=== PATIENT | male | born 1970 | race Caucasian/White ===

== ENCOUNTER 2017-09-19 02:11 | Emergency (ER) | payer SELFPAY ==
[2017-09-19] MEDS ORDERED: Sodium Chloride 0.9% 1,000 ML IV ONE (02:28)
[2017-09-19 02:42] LABS: % BASOPHILS 0.8 % (0.0-2.0); % LYMPHOCYTES 25.7 % (20.0-50.0); % MONOCYTES 5.1 % (2.0-10.0); % NEUTROPHILS 67.4 % (40.0-80.0); BASOPHILE ABSOLUTE 0.1 Th/cumm (0-0.2); EOSINOPHILE ABSOLUTE 0.1 Th/cmm (0.1-0.4); HEMATOCRIT 52.2 % (41.0-60); HEMOGLOBIN 17.3 gm/dL (12-16); LYMPHOCYTE ABSOLUTE 2.6 Th/cmm (1.5-3.0); MEAN CELL VOLUME 87.9 fl (80-99); MEAN CORPUSCULAR HEMOGLOBIN 29.2 pg (26.0-30.0); MEAN CORPUSCULAR HGB CONC 33.2 pg (28.0-36.0); MEAN PLATELET VOLUME 8.1 fl; MONOCYTE ABSOLUTE 0.5 Th/cmm (0.3-1.0); PLATELET COUNT 188 Th/cmm (150-400); RED BLOOD COUNT 5.94 Mil/cmm (4.30-5.70); RED CELL DISTRIBUTION WIDTH 12.4 % (11.5-20.0); WHITE BLOOD COUNT 10.3 Th/cmm (4.8-10.8)
[2017-09-19 02:56] LABS: ALB/GLOB RATIO 1.7 (1.0-1.8); ALBUMIN 4.3 gm/dL (4.2-5.5); ALKALINE PHOSPHATASE 122 U/L (34-104); ANION GAP 9.2 (7.0-16.0); BILIRUBIN,TOTAL 0.3 mg/dL (0.3-1.0); BUN - UREA NITROGEN 12 mg/dL (7-25); CALCIUM SERUM 9.5 mg/dL (8.6-10.3); CARBON DIOXIDE 30.3 mEq/L (21.0-31.0); CHLORIDE 98 mEq/L (98-107); CREATININE - SERUM 0.8 mg/dL (0.7-1.3); GFR AFRICAN-AMERICAN > 60.0 ml/min (>90); GFR NON AFRICAN-AMERICAN > 60.0 ml/min; GLUCOSE 405 mg/dL (70-105); POTASSIUM SERUM 3.5 mEq/L (3.5-5.1); SGOT 15 U/L (13-39); SGPT/ALT 15 U/L (7-52); SODIUM SERUM 134 mEq/L (136-145); TOTAL PROTEIN,SERUM 6.9 gm/dL (6.0-8.3)
--- NOTE | 2017-09-19 04:56 | ED Physician Chart ---
ED Chief Complaint/HPI - Patient Information Date Seen:: 09/19/17 Time Seen:: 02:20 Chief Complaint:: Headache and dizziness History of Present Illness:: 47 yo male walked to ER with family. Patient had headache, dizziness, and nausea for a few hours. Patient stated that changing head positions would worsen the dizziness. Allergies:: Allergies Allergy/AdvReac Type Severity Reaction Status Date / Time No Known Allergies Allergy Verified 09/19/17 02:24 Vitals:: Vital Signs - 8 hr 09/19/17 09/19/17 02:11 02:36 Temp 98.2 F HR 94 88 RR 18 16 BP 153/86 142/86 O2 Sat % 98 97 ED Review of Systems - Review of Systems General/Constitutional: No fever, No chills Skin: No bruising Head: Headache, Light headed Eyes: No pain ENT: No nasal drainage Neck: No neck pain Cardio Vascular: No chest pain Pulmonary: No SOB GI: Nausea, No vomiting Musculoskeletal: No bone or joint pain Neurological: No focal symptoms ED Past Medical History - Past Medical History Past Medical History: Other (vertigo) Social History: Non Smoker, No Alcohol, No Drug Use Family Medical History - Family Member Mother History Unknown: Yes ED Physical Exam - Physical Examination General/Constitutional: Awake, Alert Head: Atraumatic Eyes: PERRL Skin: No skin lesions ENMT: Nasal exam nl Other ENMT comments:: [place]-Hallpike test positive Neck: No nuchal rigidity Respiratory: Clear to Auscultation Cardio Vascular: RRR, No murmur, gallop, rubs, NL S1 S2 GI: No tenderness/rebounding/guarding Extremities: normal strength in all extremities Neuro/Psych: No focal deficits ED Labs/Radiology/EKG Results - Lab Results Results: Laboratory Tests 09/19/17 09/19/17 02:30 02:30 WBC 10.3 RBC 5.94 H Hgb 17.3 Hct 52.2 MCV 87.9 MCH 29.2 MCHC Differential 33.2 RDW 12.4 Plt Count 188 MPV 8.1 Neutrophils % 67.4 Lymphocytes % 25.7 Monocytes % 5.1 Eosinophils % 1.0 Basophils % 0.8 Sodium 134 L Potassium 3.5 Chloride 98 Carbon Dioxide 30.3 Anion Gap 9.2 BUN 12 Creatinine 0.8 Est GFR ( Amer) > 60.0 Est GFR (Non-Af Amer) > 60.0 BUN/Creatinine Ratio 15.0 Glucose 405 H Calcium 9.5 Total Bilirubin 0.3 AST 15 ALT 15 Alkaline Phosphatase 122 H Total Protein 6.9 Albumin 4.3 Globulin 2.6 Albumin/Globulin Ratio 1.7 ED Assessment - Assessment General Assessment: Benign proxysmal positional vertigo Hyponatremia Assessment/Comments:: CBC, CMP NS 1L IV bolus Meclizine Zofran D/c home F/u PCP or return to ER if symptoms worsen ED Septic Shock - . Is Septic Shock (SBP<90, OR Lactate>4 mmol\L) present?: No - <6hrs of presentation: Vital Signs: Vital Signs - 8 hr 09/19/17 09/19/17 02:11 02:36 Temp 98.2 F HR 94 88 RR 18 16 BP 153/86 142/86 O2 Sat % 98 97 ED Reassessment (Disposition) - Reassessment Reassessment Condition:: Improved - Patient Disposition Discharge/Transfer:: Home ED Discharge Plan - Patient Disposition Admit/Discharge/Transfer: PT DISCHARGED HOME Condition at Disposition: Improved Instructions: Vertigo, Vertigo, [id number] Additional Instructions: follow up with your primary medical doctor ximena specifically for high blood sugar level
[2017-09-19 17:53] LABS: A1C % 10.1 % (4.0-6.0)
== END 2017-09-19 03:15 | disposition home or self-care (01) ==
LOC: ER 02:11
DX: H81.10 Benign paroxysmal vertigo, unspecified ear (principal); E87.1 Hypo-osmolality and hyponatremia
CPT/HCPCS: 99284; 96374; 36415; 85025; 83036; 80053; J2405; J7030; Z7502